=== PATIENT | female | born 1960 | race Caucasian/White ===

== ENCOUNTER 2020-10-13 10:17 | Outpatient (CLI) | payer OTHER, SELFPAY ==
--- NOTE | ~2020-10-13 | US_ITS ---
EXAMINATION: US thyroid EXAM DATE: 10/13/2020 10:47 INDICATION: E04.1 - Nontoxic single thyroid nodule . TECHNIQUE: Multiple grayscale and Doppler images of the thyroid were obtained (by a technologist who performed the scan) and subsequently reviewed. Individual nodules and recommendations may be reporte d in accordance with TI-RADS system as designated by the 2017 ACR White Paper TI-RADS committee. Comp laineson is made to prior examination from 05/29/2019. FINDINGS: The right there are lobe measures 7.6 x 4.2 x 3.1 cm, the left measuring 7.9 x 3.0 x 1.7 cm. There ar e multiple large bilateral thyroid nodules again noted, not significantly changed. No single nodule s tands out as suspicious or different from the others for biopsy. IMPRESSION: Stable multinodular goiter. Reviewed, dictated and finalized at location B. CAREGIVER IMPRESSION: Stable multinodular goiter.
== END 2020-10-13 10:18 | disposition home or self-care (01) ==
LOC: CHSIMG 10:19
PROVIDERS: PCP Family Medicine; Visit Provider Family Medicine
DX: E04.1 Nontoxic single thyroid nodule (principal)
CPT/HCPCS: 76536

== ENCOUNTER 2021-11-10 15:10 | Outpatient (CLI) | payer OTHER, SELFPAY ==
--- NOTE | ~2021-11-10 | XR_ITS ---
XR wrist RT 2V DATE: 11/10/2021 15:30 INDICATION: Fall. Lateral wrist pain TECHNIQUE: AP and lateral views COMPARISON: None FINDINGS: Subtle recent nondisplaced dorsal cortical fracture of the distal radial metaphysis. Subtle nondisplaced fracture of the ulnar styloid process is suggested. Normal alignment at the wrist joint. IMPRESSION: Nondisplaced distal radial dorsal metaphyseal cortical fracture Probable nondisplaced ulnar styloid process fracture Reviewed, dictated and finalized at location A. GER MEDIA RELATIONS
== END 2021-11-10 15:11 | disposition home or self-care (01) ==
LOC: CHSIMG 15:13
PROVIDERS: PCP Family Medicine; Visit Provider Family Medicine
DX: S69.91XA Unspecified injury of right wrist, hand and finger(s), initial encounter (principal)
CPT/HCPCS: 73100

== ENCOUNTER 2021-11-17 09:00 | Outpatient (CLI) | payer OTHER, SELFPAY ==
--- NOTE | ~2021-11-17 | XR_ITS ---
XR wrist RT min 3V DATE: 11/17/2021 09:14 INDICATION: Fracture one week ago TECHNIQUE: 3 views COMPARISON: 11/10/2021 right wrist FINDINGS: Nondisplaced distal radial and ulnar styloid process fractures are again noted. There is no significant change in position or alignment, no significant displacement or angulation. Radiocarpal alignment is preserved. IMPRESSION: No significant change of distal radial and ulnar styloid process fractures Reviewed, dictated and finalized at location B. GROUND EQUIPMENT ERECTOR IMPRESSION: No significant change of distal radial and ulnar styloid process fr actures
== END 2021-11-17 09:01 | disposition home or self-care (01) ==
LOC: CHSIMG 09:02
PROVIDERS: PCP Family Medicine; Visit Provider Orthopaedic Surgery
DX: M25.531 Pain in right wrist (principal)
CPT/HCPCS: 73110

== ENCOUNTER 2021-12-29 08:26 | Outpatient (CLI) | payer OTHER, SELFPAY ==
--- NOTE | ~2021-12-29 | XR_ITS ---
EXAMINATION: XR wrist RT min 3V DATE: 12/29/2021 08:45 INDICATION: Distal right radius fracture. TECHNIQUE: 3 views of right wrist were obtained. COMPARISON: Right wrist radiographs 11/17/2021, 11/10/2021 FINDINGS: There is a comminuted fracture of distal radius with involvement of the distal articular devries rface. The main distal fracture fragment demonstrates impaction. There is 2 degrees palmar tilt of th e distal articular surface. Callus formation is noted. There is an avulsion fracture of the ulnar sty loid. There is mild osteoarthritis of first carpometacarpal joint. IMPRESSION: 1. Healing comminuted fracture of distal radius. 2. Avulsion fracture of the ulnar styloid. Reviewed, dictated and finalized at location A.
== END 2021-12-29 08:27 | disposition home or self-care (01) ==
LOC: CHSIMG 08:31
PROVIDERS: PCP Family Medicine; Visit Provider Orthopaedic Surgery
DX: M25.531 Pain in right wrist (principal)
CPT/HCPCS: 73110

== ENCOUNTER 2022-04-30 13:07 | Outpatient (CLI) | payer OTHER, SELFPAY ==
[2022-04-30 13:47] LABS: SARS-CoV-2 Ag Positive (Negative)
== END 2022-04-30 13:08 | disposition home or self-care (01) ==
LOC: CHSLAB 13:10
PROVIDERS: PCP Nurse Practitioner Family; Visit Provider Nurse Practitioner Family
DX: U07.1 COVID-19 (principal)
CPT/HCPCS: 87426; C9803

== ENCOUNTER 2022-07-05 10:46 | Outpatient (CLI) | payer OTHER, SELFPAY ==
--- NOTE | ~2022-07-05 | US_ITS ---
EXAMINATION: US thyroid DATE: 07/05/2022 11:27 INDICATION: Nontoxic single thyroid nodule. TECHNIQUE: Multiple ultrasound images of the thyroid were obtained. COMPARISON: Thyroid ultrasound 10/13/2020 FINDINGS: The right thyroid lobe measures 10.6 x 8.9 x 7.2 cm. The left thyroid lobe measures 9.9 x 9.1 x 8.3 cm. Again seen are nodules throughout the thyroid of similar ultrasound appearance without normal in tervening parenchyma. IMPRESSION: 1. Multinodular goiter, likely not clinically significant. Reviewed, dictated and finalized at location A.
== END 2022-07-05 10:47 | disposition home or self-care (01) ==
LOC: CHSIMG 10:48
PROVIDERS: PCP Nurse Practitioner Family; Visit Provider Nurse Practitioner Family
DX: E04.1 Nontoxic single thyroid nodule (principal)
CPT/HCPCS: 76536

== ENCOUNTER 2023-02-12 14:57 | Emergency (ER) | payer OTHER, SELFPAY ==
[2023-02-12 15:03] VITALS: BP 152/71; PULSE 64; RESP 20; TEMP 36.6; O2SAT 100
[2023-02-12 15:06] VITALS: BP 152/71; PULSE 64; RESP 20; TEMP 36.3; O2SAT 100
--- NOTE | 2023-02-12 15:20 | ED.GENADULT ---
HPI - General Adult General Chief complaint: Extremity Problem,Nontraumatic Stated complaint: Left knee pain Time Seen by Provider: 02/12/23 15:20 History of Present Illness HPI narrative: Healthy 62yo woman h/o osteoporosis on bisphosphonate injections presents with intermittent severe pain in her left leg, lateral to the knee and distal thigh, onset a few days ago, worse after exertion and at the end of the day. Responded well to a dose of naproxen. Today, however, unable to bear weight due to pain. no pain at rest or with range of motion while in bed. No rash, fever, chills, or joint swelling. No trauma. Patient does regular step class and spin class. Related Data Allergies Allergy/AdvReac Type Severity Reaction Status Date / Time No Known Allergies Allergy Verified 02/12/23 15:04 Review of Systems Review of Systems: All systems reviewed & are unremarkable except as noted in HPI and below Constitutional: Constitutional: Denies fever(s) ENT: Denies dizziness Cardiovascular: Cardiovascular: Denies chest pain Respiratory: Respiratory: Denies dyspnea PMFSH Past Medical History Medical History DANII (generalized anxiety disorder) Hypertension Thyroid nodule Surgical History Surgical History No history of previous surgery Family History Family History Father Hypertension Mother Hypertension Social History Social History Smoking status: Never smoker Alcohol intake: current Drinks per week: 2 Substance use: never Living arrangements: with family Occupation/Education: retired Gender identity (if verbalized by the patient): Female Exam Const: General: healthy appearing and no acute distress Nutritional Appearance: well nourished Orientation/consciousness: patient oriented x3 Neck: Other: supple Resp: Effort & Inspection: normal respiratory effort and not labored Skin: General skin exam: normal color, no jaundice and no pallor Neuro: General: patient oriented x3, moves all extremities and no focal motor deficits Extrem: General: normal to inspection Other: very mild tenderness over the left distal IT band, otherwise no bone, joint, or muscular tenderness in the extremities Course Vital Signs Vital signs: Vital Signs Temperature 36.6 C 02/12/23 15:03 Pulse Rate 64 02/12/23 15:03 Respiratory Rate 20 02/12/23 15:03 Blood Pressure 152/71 H 02/12/23 15:03 Pulse Oximetry 100 02/12/23 15:03 Oxygen Delivery Room Air 02/12/23 15:03 Temperature 36.3 C L 02/12/23 15:06 Pulse Rate 64 02/12/23 15:06 Respiratory Rate 20 02/12/23 15:06 Blood Pressure 152/71 H 02/12/23 15:06 Pulse Oximetry 100 02/12/23 15:06 Oxygen Delivery Room Air 02/12/23 15:06 Medical Decision Making MDM Narrative Medical decision making narrative: left leg pain, IT tenderness DDx muscle sprain, IT band syndrome, unlikely osteoarthritis, joint effusion, hemarthrosis, fracture, or hematoma as clinical findigns are negative. Discussed likely muscle strain with patient, need for RICE therapy. pt would like crutches due to severity of pain with ambulation. Medical Records Medical records reviewed: Yes I reviewed the external patient's medical records. Vital Signs Vital Signs: Vital Signs Temperature 36.6 C 02/12/23 15:03 Pulse Rate 64 02/12/23 15:03 Respiratory Rate 20 02/12/23 15:03 Blood Pressure 152/71 H 02/12/23 15:03 Pulse Oximetry 100 02/12/23 15:03 Oxygen Delivery Room Air 02/12/23 15:03 Temperature 36.3 C L 02/12/23 15:06 Pulse Rate 64 02/12/23 15:06 Respiratory Rate 20 02/12/23 15:06 Blood Pressure 152/71 H 02/12/23 15:06 Pulse Oximetry 100 02/12/23 15:06 Oxygen Delivery Room Air
[2023-02-12] MEDS: KETOROLAC (*BKC) 60 MG/2 ML VIAL IM (15:39)
[2023-02-12 16:03] VITALS: BP 152/71; PULSE 64; RESP 20; TEMP 36.6; O2SAT 100
== END 2023-02-12 16:05 | disposition home or self-care (01) ==
PROVIDERS: Emergency Provider Emergency Medicine; PCP Nurse Practitioner Family
DX: S76.912A Strain of unspecified muscles, fascia and tendons at thigh level, left thigh, initial encounter (principal); I10 Essential (primary) hypertension; X58.XXXA Exposure to other specified factors, initial encounter
CPT/HCPCS: 96372; 99284; J1100; J1885

== ENCOUNTER 2023-05-24 11:38 | Outpatient (CLI) | payer OTHER, SELFPAY ==
--- NOTE | ~2023-05-24 | XR_ITS ---
EXAMINATION: XR toe 2nd RT min 2V DATE: 05/24/2023 11:53 INDICATION: Right second toe injury. TECHNIQUE: 3 views of right second toe were obtained. COMPARISON: None. FINDINGS: There is an extra-articular oblique fracture of second proximal phalanx. The distal fractur e fragment demonstrates 1 mm lateral displacement, 1 mm dorsal displacement, and 20 degrees dorsal an gulation. There is mild osteoarthritis of second distal interphalangeal joint. IMPRESSION: 1. Oblique fracture of second proximal phalanx. Reviewed, dictated and finalized at location A.
== END 2023-05-24 11:39 | disposition home or self-care (01) ==
LOC: CHSIMG 11:40
PROVIDERS: PCP Nurse Practitioner Family; Visit Provider Nurse Practitioner Family
DX: S92.511A Displaced fracture of proximal phalanx of right lesser toe(s), initial encounter for closed fracture (principal)
CPT/HCPCS: 73660

== ENCOUNTER 2023-09-26 12:10 | Outpatient (CLI) | payer OTHER, SELFPAY ==
--- NOTE | ~2023-09-26 | US_ITS ---
EXAMINATION: US thyroid DATE: 09/26/2023 12:38 INDICATION: Nontoxic single thyroid nodule. TECHNIQUE: Multiple ultrasound images of the thyroid were obtained. COMPARISON: Ultrasound 07/05/2022, 10/13/2020 FINDINGS: The right thyroid lobe measures 10.1 x 4 x 5 cm. The left thyroid lobe measures 4.3 x 4 x 3 cm. Aga in seen are nodules throughout the thyroid of similar ultrasound appearance without normal intervenin g parenchyma. IMPRESSION: 1. Stable multinodular goiter, likely not clinically significant. Reviewed, dictated and finalized at location A. AR TRIMMER
== END 2023-09-26 12:11 | disposition home or self-care (01) ==
LOC: CHSIMG 12:13
PROVIDERS: PCP Nurse Practitioner Family; Visit Provider Nurse Practitioner Family
DX: E04.2 Nontoxic multinodular goiter (principal)
CPT/HCPCS: 76536

== ENCOUNTER 2024-10-05 07:23 | Outpatient (CLI) | payer OTHER, SELFPAY ==
--- NOTE | ~2024-10-05 | US_ITS ---
EXAMINATION: US thyroid DATE: 10/05/2024 07:47 INDICATION: Nontoxic diffuse goiter. TECHNIQUE: Multiple ultrasound images of the thyroid were obtained. COMPARISON: Ultrasound 09/26/2023, 10/13/2020 FINDINGS: The right thyroid lobe measures 10.1 x 6.0 x 7.0 cm. The left thyroid lobe measures 9.0 x 7.0 x 7.0 cm. The thyroid is filled with ill-defined nodules of similar ultrasound appearance without normal i ntervening parenchyma, which is chronic. Vascularity is normal. IMPRESSION: 1. Stable multinodular goiter, likely not clinically significant. Reviewed, dictated and finalized at location A. TECHNICIAN
== END 2024-10-05 07:24 | disposition home or self-care (01) ==
LOC: CHSIMG 07:25
PROVIDERS: PCP Family Medicine; Visit Provider Family Medicine
DX: E04.2 Nontoxic multinodular goiter (principal)
CPT/HCPCS: 76536